=== PATIENT | male | born 1960 | race Caucasian/White ===

== ENCOUNTER → 2024-02-16 08:11 | Outpatient (REF) | payer OTHER, SELFPAY | LOC: HWRCS 08:11 | PROVIDERS: ATTENDING PHYSICIAN Internal Medicine; FAMILY PHYSICIAN Nurse Practitioner Primary Care | DX: I25.10 Atherosclerotic heart disease of native coronary artery without angina pectoris (principal); I10 Essential (primary) hypertension; I77.810 Thoracic aortic ectasia; R06.09 Other forms of dyspnea | CPT/HCPCS: 93306 ==

== ENCOUNTER → 2024-11-07 12:52 | Outpatient (REF) | payer OTHER, SELFPAY | LOC: RAD 12:52 | PROVIDERS: ATTENDING PHYSICIAN Nurse Practitioner Primary Care | DX: I51.7 Cardiomegaly (principal); R06.09 Other forms of dyspnea; R09.89 Other specified symptoms and signs involving the circulatory and respiratory systems | CPT/HCPCS: 71046 ==

== ENCOUNTER → 2024-11-22 07:55 | Outpatient (REF) | payer OTHER, SELFPAY | LOC: HWRCS 07:55 | PROVIDERS: ATTENDING PHYSICIAN Nurse Practitioner Primary Care; REFERRING PHYSICIAN Internal Medicine | DX: E78.2 Mixed hyperlipidemia (principal); I51.7 Cardiomegaly | CPT/HCPCS: 93306 ==

== ENCOUNTER → 2024-11-24 07:09 | Outpatient (REF) | payer OTHER, SELFPAY | LOC: HWRCS 07:09 | PROVIDERS: ATTENDING PHYSICIAN Nurse Practitioner Primary Care; REFERRING PHYSICIAN Internal Medicine | DX: I51.7 Cardiomegaly (principal) | CPT/HCPCS: 78452; 93017; A9500; J2785 ==

== ENCOUNTER 2024-12-13 06:45 | Day surgery (SDC) | payer OTHER, SELFPAY | END 2024-12-13 09:30 | disposition home or self-care (01) | LOC: CATH 06:45 | PROVIDERS: ATTENDING PHYSICIAN Internal Medicine; FAMILY PHYSICIAN Nurse Practitioner Primary Care | DX: I08.3 Combined rheumatic disorders of mitral, aortic and tricuspid valves (principal); I25.10 Atherosclerotic heart disease of native coronary artery without angina pectoris; I10 Essential (primary) hypertension; E78.2 Mixed hyperlipidemia; R73.03 Prediabetes; Z79.82 Long term (current) use of aspirin | CPT/HCPCS: 93312; 93320; 93325 ==

== ENCOUNTER → 2024-12-15 06:39 | Outpatient (REF) | payer OTHER, SELFPAY | LOC: RAD 06:39 | PROVIDERS: ATTENDING PHYSICIAN Nurse Practitioner Primary Care; OTHER PHYSICIAN Internal Medicine; OTHER PHYSICIAN Specialist | DX: I10 Essential (primary) hypertension (principal) | CPT/HCPCS: 93975 ==

== ENCOUNTER 2024-12-18 06:15 | Day surgery (SDC) | payer OTHER, SELFPAY ==
[2024-12-18] VITALS (13 sets, daily range): BP systolic 135–169; BP diastolic 81–100; BMI 31.1
[2024-12-18] MEDS: LOW STRENGTH ASPIRIN 81 MG PO (06:40)
[2024-12-18] MEDS: NSS 278 ML IV (07:27)
--- NOTE | 2024-12-18 09:27 | ITS.CL.CATH ---
[employer] Superintendent - Catheterization
Cardiac Catheterization
Procedure Report:
CARDIAC CATHETERIZATION REPORT
Date of Procedure: 12/18/2024
Referring: Anthony Bridges M.D., Ph.D.
Indication: Occasional dyspnea on exertion, moderate aortic valve regurgitation.
PROCEDURE:
1. Right heart catheterization.
2. Coronary angiography.
3. Left heart catheterization.
4. Aortography.
A total of 20 minutes of procedural/moderate sedation was utilized. An independent medical dosimetrist was present to assist with and help manage the patient's level of consciousness and physiologic status.
ACCESS:
1. 6 [place] right rate artery using a modified Seldinger technique delete the.
2. 5 [place] right antecubital vein through a previously placed IV.
CATHETERS:
1. 5 [place] balloon wedge.
2. 5 [place] JR4.
3. 5 [place] JL 3.5.
HEMODYNAMIC DATA
Weight (kg): 92.7
AO (s/d/x, mmHg): 100/61/77
LV (s/x, mmHg): 100/15
PCWP (a/v/x, mmHg): 17/
PA (s/d/x, mmHg):
RV (s/x, mmHg): /
RA (a/v/x, mmHg): /
SVC SvO2 (%): 68.5
IVC SvO2 (%): Not obtained.
RA SvO2 (%): Not obtained.
RV SvO2 (%): Not obtained.
PA SvO2 (%): 66.0
SaO2 (%): 97.4
Hbg (g/dL): 12.9
SERAFIN
CO (L/min): 4.27
CI (L/min/m2): 2.07
Thermodilution
CO (L/min): Not performed.
CI (L/min/m2): Not performed.
TPG (mmHg): 4
PVR (Mustafa Units): 0.94
SVR (dynes*seconds*cm^-5): 1237
AVO2 Diff (Volume %): 5.51
AV gradient (x, mmHg): None.
AV area (cm2): Normal.
MV gradient (x, mmHg): Not obtained.
MV area (cm2): Not obtained.
LEFT VENTRICULOGRAPHY: Not performed.
AORTOGRAPHY: Performed in MELO projection. There is mild to moderate dilation of the ascending aorta which normalizes as it approaches the aortic arch. There is mild/aortic valve insufficiency. There is no evidence of aortic dissection or
disruption.
CORONARY ANGIOGRAPHY
Dominance: Codominant.
Left Main: Extremely short, trifurcating vessel. There is no coronary artery disease.
LAD: Normal size vessel giving rise to 1 significant diagonal. There is a 20-30% lesion in the ostium and a 40% lesion in the mid vessel. These appear unchanged from prior coronary angiography.
Ramus: Large size vessel supplying a significant portion of the anterolateral wall. There is no coronary artery disease.
Circumflex: Large size, codominant vessel giving rise to 2 obtuse marginals before terminating as a partial LPDA. There is no coronary artery disease.
RCA: Small to medium size, codominant vessel. A partial RPDA supplying the distal inferior septum is observed. Of note, there is generalized slow flow in this vessel without obvious atherosclerotic disease burden.
INTERVENTIONS
None.
Closure Device: Vascular band for the right radial artery, manual pressure for the right antecubital vein.
Radiation dose (mGy): 412.45
DAP (cm2.Gy): 41.5667
Fluoroscopy time (minutes): 4.6
CONCLUSIONS:
1. Codominant circulation with a 20-30% lesion in the ostium of the LAD and a 40% lesion in the mid vessel, unchanged from prior angiography (05/25/2022) when IFR of the LAD was 0.94.
2. Mildly elevated filling pressures (LVEDP = 15 mmHg, PCWP = 15 mmHg at 92.7 kg).
3. Mild to moderate ascending aorta dilation with mild to moderate aortic valve insufficiency.
RECOMMENDATIONS:
1. Expectant management after cardiac catheterization via right radial/antecubital approach.
2. Limited weight bearing on the right wrist for one week.
3. Continued evaluation for sources of dyspnea without obvious cardiac source.
4. Consider the possibility of relative endothelial dysfunction given slow flow in the right coronary artery. Possible role for long-acting nitrates.
5. Continue aggressive primary prevention with PCSK9 inhibitors given statin/ezetimibe intolerance.
6. Appropriate surveillance of aortic valve insufficiency.
Copy to: Anthony Bridges M.D., Ph.D., Vonnie Hallman, [facility]-
Colin Ovalle, DO, FACC, FACP
[2024-12-18] MEDS: NSS 417 IV (11:37)
== END 2024-12-18 12:15 | disposition home or self-care (01) ==
LOC: CATH 06:15
PROVIDERS: ATTENDING PHYSICIAN Internal Medicine Cardiovascular Disease; FAMILY PHYSICIAN Nurse Practitioner Primary Care; OTHER PHYSICIAN Internal Medicine
DX: I35.1 Nonrheumatic aortic (valve) insufficiency (principal); I25.10 Atherosclerotic heart disease of native coronary artery without angina pectoris; R06.09 Other forms of dyspnea; E78.2 Mixed hyperlipidemia; R73.03 Prediabetes; Z79.82 Long term (current) use of aspirin; Z79.899 Other long term (current) drug therapy; I10 Essential (primary) hypertension
CPT/HCPCS: 99152; 93460; 93567; C1894; Q9967

== ENCOUNTER 2025-01-02 06:18 | Day surgery (SDC) | payer OTHER, SELFPAY | END 2025-01-02 15:17 | disposition home or self-care (01) | LOC: GI 06:18 | PROVIDERS: ATTENDING PHYSICIAN Specialist | DX: D50.9 Iron deficiency anemia, unspecified (principal); K57.30 Diverticulosis of large intestine without perforation or abscess without bleeding; D12.3 Benign neoplasm of transverse colon; K63.5 Polyp of colon; K63.9 Disease of intestine, unspecified | CPT/HCPCS: 45385; 45380; 88305 ==

== ENCOUNTER → 2025-03-06 14:24 | Outpatient (REF) | payer OTHER, SELFPAY | LOC: MRI 3T 14:24 | PROVIDERS: ATTENDING PHYSICIAN Specialist; FAMILY PHYSICIAN Nurse Practitioner Primary Care; REFERRING PHYSICIAN Internal Medicine Gastroenterology | DX: K86.1 Other chronic pancreatitis (principal) | CPT/HCPCS: 74183; A9575 ==

== ENCOUNTER 2025-07-03 10:34 | Emergency (ER) | payer OTHER, SELFPAY ==
[2025-07-03] VITALS (7 sets, daily range): BP systolic 120–137; BP diastolic 65–77; BMI 28.5
--- NOTE | 2025-07-03 11:24 | ED.GENMED ---
History of Present Illness
General
Chief Complaint: Chest Pain
Time Seen by Provider: 07/03/25 11:17
History of Present Illness
History of Present Illness:
Patient is a 64-year-old male with past medical history of hyperlipidemia, GERD, diverticulosis, BPH, and history of aortic valve insufficiency here today for evaluation of approximately 5 to 6 days of fairly constant chest pain. Pain is along the
central bilateral lower chest regions. He also endorses slight shortness of breath. He has noted intermittent feelings like his abdomen is distended however he denies having abdominal pain. He has felt chills at night with sweating but no fevers.
No cough, rhinorrhea, sore throat, congestion. No vomiting. He has noted joint pain. He denies lower extremity pain or swelling. Patient contacted his registered vascular technologist (rvt) this morning and was ultimately sent to the emergency department for evaluation.
Past History
Past History
ED Past Medical History: HTN and Hypercholesterolemia
Social History
Tobacco: Non-smoker
Living: with family
Employment: Employed
Review of Systems
Review of Systems
All Other Systems: ROS reviewed and negative except as documented in HPI and ROS
Phy Exam
Physical Exam
Physical Exam:
GENERAL: Alert , in no apparent distress
EYE: No injection
NECK: Supple
ENT: o/p clr, mmm.
CARDIAC: Regular rate and rhythm .
LUNGS: Clear breath sounds bilaterally, no acute respiratory distress, no wheezes/rales/rhonchi
ABDOMEN: Soft, without focal tenderness, no r/g, no cvat
NEUROLOGICAL: Alert and oriented, no focal neuro deficits
SKIN: Warm and dry, skin intact.
MUSCULOSKELETAL: No edema, well perfused.
PSYCH: Normal and appropriate interaction.
Scores
Heart Score for Chest Pain Patients
STEMI patient?: No
History: Slightly or Non-Suspicious
ECG: Normal
Age: >45 - <65 years
Risk Factors: 1 or 2 Risk Factors
Troponin: </= Normal Limit
Heart Score for Chest Pain Patients: 2
Heart Score Risk: 2.5% MACE over next 6 weeks
Course
Orders/Labs/Results
Orders:
Orders
07/03/25
Electrocardiogram (*1) Stat
Comment: DONE EMR
07/03/25 10:36
Electrocardiogram (*1) Urgent
Reason for Study: Chest Pain
EKG- Treatment ONCE
07/03/25 11:28
CR Chest - 2 Views Urgent
Comment:
Reason For Exam: chest pain
07/03/25 11:31
COVID-19 Antigen Urgent
Source: Nasal Swab
07/03/25 11:32
Complete Blood Count/With Diff Urgent
Comprehensive Metabolic Panel Urgent
NT-proBNP Urgent
Troponin I Urgent
Influenza A+B Rapid Molecular Urgent
CHADD Source: Nasal Swab
Specimen Description:
07/03/25 14:34
Troponin I Urgent
Abnormal Lab Results
07/03/25
11:32
RDW 14.8 H %
(11.5-14.5)
Absolute Monos (auto) 1.1 H 10^3/uL
(0.1-0.6)
Lymphocytes % 17.1 L %
(20.5-51.1)
Monocytes % 14.5 H %
(1.7-9.3)
Sodium 132 L mmol/L
(135-145)
BUN 26 H mg/dl
(9-20)
07/03/25 11:32
07/03/25 11:32
Vital Signs
Initial and Last Documented VS:
Initial Vital Signs
Temp Pulse Resp BP Pulse Ox
97.6 F 79 18 130/76 98
07/03/25 10:37 07/03/25 10:37 07/03/25 10:37 07/03/25 10:37 07/03/25 10:37
Last Documented Vital Signs
Temp Pulse Resp BP Pulse Ox
97.6 F 73 24 131/65 96
07/03/25 10:37 07/03/25 16:15 07/03/25 16:15 07/03/25 16:00 07/03/25 16:15
MDM/Problems Addressed
Differential Diagnosis Includes:
Patient is a 64-year-old male with past medical history of hyperlipidemia, GERD, diverticulosis, BPH, and history of aortic valve insufficiency here today for evaluation of approximately 5 to 6 days of fairly constant chest pain. Patient very
well-appearing. Vital signs grossly within normal limits. Physical examination unremarkable with a normal cardiopulmonary examination. There is no lower extremity swelling. Abdomen soft. Patient does not appear volume overloaded. We will
obtain a cardiac workup with EKG, screening labs, and chest x-ray. Will ultimately discuss with his registered vascular technologist (rvt).
07/03/2025 17:09: Screening labs reveal slight decrease in sodium to 132. Troponin x 2 negative. BNP negative. COVID testing negative. Chest x-ray negative. EKG nonischemic. Patient appears well overall. I have a low suspicion for ACS. He
also has been more stressed recently as his child had a baby and his mother just recently and services are tomorrow. I suspect a lot of this is stress related. We discussed supportive measures and close follow-up. I did reach
out to the on-call registered vascular technologist (rvt) and spoke with Dr. Guerrero. He agrees with plan at this time with close outpatient follow-up. ER precautions given for returning. All questions answered. Stable for discharge.
*Pulse Oximetry
SaO2: 98
Oxygen Mode of Delivery: Room air
Patient hypoxic: no
*Critical Care Note
Total Time (30-74mins, 75-104mins- exclusive of procedures): Not Applicable
ED Attending Note
-
Portions of this chart may have been created with voice recognition software.� Occasional wrong word or��sound alike� substitutions may have occurred due to the inherent limitations of voice recognition software.
Discharge Plan
Departure
Patient Disposition: Home (Routine Discharge)
Date of Disposition: 07/03/25
Time of Disposition: 16:11
Patient with high blood pressure during this ER visit?: No
Condition: Good
Covid-19: Negative COVID-19
Discharge Problem:
Chest pain
Instructions: Chest Pain CBC Follow Up
Prescriptions:
No Action
sildenafil [Viagra] 100 mg Tablet
100 mg PO DAILY PRN (Reason: ED)
hydrochlorothiazide 25 mg Tablet
25 mg PO DAILY
lisinopril 40 mg Tablet
40 mg PO DAILY
cholecalciferol (vitamin D3) [Vitamin D3] 25 mcg (1,000 unit) Tablet
25 mcg PO DAILY
aspirin 81 mg Capsule
81 mg PO DAILY
meloxicam 15 mg Tablet
15 mg PO DAILY
selenium 200 mcg Tablet
200 mcg PO DAILY
amlodipine 10 mg Tablet
10 mg PO DAILY
ferrous sulfate 325 mg (65 mg iron) Tablet
325 mg PO DAILY
omeprazole 20 mg Capsule,Delayed Release(Dr/Ec)
20 mg PO DAILY
Praluent Pen 150 mg/mL Pen Injector
150 mg SC Q2W
spironolactone 25 mg Tablet
12.5 mg PO BID
Referrals:
Anthony Bridges MD [Active, Cardiology] - Follow up in 2-3 days
Vonnie Hallman CRNP [Family Provider, Internal Medicine] - Follow up in 2-3 days
Activity Restrictions/Additional Instructions:
Please follow-up cardiology in 2 to 3 days for close reevaluation.
Return sooner for any new, worsening, or concerning symptoms.
Interventions
Interventions:
*Risk Screen - Suicide Last Done: 07/03/25 12:58
*General Assessment Last Done: 07/03/25 12:51
*Neglect/Abuse Screening Last Done: 07/03/25 12:58
*ED COVID-19 Vaccine History Last Done: 07/03/25 12:51
*ED Influenza Vaccine History Last Done: 07/03/25 12:51
[facility] Fall Risk Assessment Tool Last Done: 07/03/25 12:59
*Nursing Disposition Last Done: 07/03/25 16:31
ED- Cardiac Assessment Last Done: 07/03/25 13:00
Discharge Date and Time
Discharge Date/Time: 07/03/25 16:32
Print Language: YAKUT
[2025-07-03 11:49] LABS: Hematocrit 46.4 % (39.0-52.0); Hemoglobin 15.5 g/dL (13.0-18.0); Mean Corp Hgb Conc. 33.4 g/dL (33.0-37.0); Mean Corpuscular Volume 85.3 fL (80.0-94.0); Nucleated Red Blood Cells % 0 % (-); Platelet Count 363 10^3/uL (130-400); Red Cell Dist. Width 14.8 % (11.5-14.5)
[2025-07-03 12:03] LABS: ALT (SGPT) 29 U/L (0-50); AST (SGOT) 30 U/L (17-59); Albumin 3.9 g/dl (3.5-5.0); Alkaline Phosphatase 63 U/L (38-126); Blood Urea Nitrogen 26 mg/dl (9-20); Calcium 9.0 mg/dl (8.4-10.2); Carbon Dioxide 22 mmol/L (22-30); Chloride 103 mmol/L (98-107); Glucose 98 mg/dl (70-99); Potassium 4.8 mmol/L (3.5-5.1); Sodium 132 mmol/L (135-145); Total Protein 7.5 g/dl (6.3-8.2)
[2025-07-03 12:13] LABS: Troponin I < 0.012 ng/ml
[2025-07-03 12:14] LABS: Estimated Creatinine Clearance 65 ml/min; eGFR > 60.00
[2025-07-03 12:17] LABS: COVID-19 Antigen Negative (Negative)
[2025-07-03 15:14] LABS: Troponin I < 0.012 ng/ml
== END 2025-07-03 16:32 | disposition home or self-care (01) ==
LOC: EMR 10:34
PROVIDERS: Physician Assistant; EMERGENCY PHYSICIAN Emergency Medicine; FAMILY PHYSICIAN Nurse Practitioner Primary Care
DX: R07.89 Other chest pain (principal); E78.00 Pure hypercholesterolemia, unspecified; K21.9 Gastro-esophageal reflux disease without esophagitis; N40.0 Benign prostatic hyperplasia without lower urinary tract symptoms; I35.1 Nonrheumatic aortic (valve) insufficiency; I10 Essential (primary) hypertension
CPT/HCPCS: 99283; 71046; 80053; 83880; 84484; 85025; 87502; 87811; 93005

== ENCOUNTER → 2025-07-16 15:13 | Outpatient (REF) | payer OTHER, SELFPAY | LOC: HWRCS 15:13 | PROVIDERS: ATTENDING PHYSICIAN Internal Medicine Cardiovascular Disease; FAMILY PHYSICIAN Nurse Practitioner Primary Care | DX: R07.9 Chest pain, unspecified (principal); I35.1 Nonrheumatic aortic (valve) insufficiency | CPT/HCPCS: 93306 ==

== ENCOUNTER → 2025-07-20 12:14 | Outpatient (REF) | payer OTHER, SELFPAY | LOC: RAD 12:14 | PROVIDERS: ATTENDING PHYSICIAN Internal Medicine Cardiovascular Disease; FAMILY PHYSICIAN Nurse Practitioner Primary Care | DX: R07.9 Chest pain, unspecified (principal); I71.21 Aneurysm of the ascending aorta, without rupture | CPT/HCPCS: 71275; Q9967 ==